=== PATIENT | male | born 1955 | race Caucasian/White ===

== ENCOUNTER 2017-02-19 18:03 | Emergency (ER) | payer OTHER ==
--- NOTE | ~2017-02-19 | CR63 ---
[facility] A Service of [facility] RADIOLOGY TEXT RESULTS PATIENT: NY FALLON LOCATION: CFTX : 51 UNIT #: [id number] AGE: [address]: Elvi Badillo SEX: M ORDER DR: [id number] [facility] [address] [place], [place] [address] [id number] MR#: [id number] Acc #: [id number] NAME: NY FALLON : 1955 SEX: M STUDY DATE/TIME: 02/19/2017 18:08 UNIT: [facility] ROOM: STUDY DESCRIPTION: CR Chest 2 View Attending Physician: Elvi Badillo P.A.-C. Ordering Physician: Elvi Badillo P.A.-C. Primary Care Physician: Tez Briceño M.D. MEDICAL IMAGING REPORT This report is preliminary unless electronic signature is present EXAM Chest x-ray portable HISTORY Cough and congestion, short of air and fever for 4 days. Asthma and bronchitis. COMMENT 2 views of the chest are reviewed. COMPARISON CT chest pending hoahaoism from 2011 FINDINGS There is airspace disease in the right middle lobe. The heart size is normal. There is no pleural effusion. There are mild thoracic degenerative changes. No pneumothorax. There is thickening of the peribronchial vascular soft tissues bilaterally appreciated best at the medial left base and are small reticular nodule densities diffusely. 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 IMPRESSION Interval development of an infiltrate in the right middle lobe. 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 Please correlate for clinical evidence of aspiration or pneumonia. Follow up to complete clearing is recommended to exclude a postobstructive process. There is some peribronchial vascular soft tissue thickening at the medial left base. The heart size is normal and there is no congestive failure, pneumothorax or pleural effusion. There is some nonspecific reticular nodular appearance to the interstitial markings in general. Attention to this is recommended when a follow up film is obtained. [facility] A Service of [facility] RADIOLOGY TEXT RESULTS PATIENT: NY FALLON LOCATION: [facility] : 51 UNIT #: [id number] AGE: [address]: Elvi Badillo SEX: M ORDER DR: Dictated by... Morena Torres M.D. THIS IS AN ELECTRONICALLY VERIFIED REPORT Morena Torres M.D. at 02/20/2017 3:09 PM SAC/to TD: 02/20/2017 13:39 JOB #: [id number] MEDICAL IMAGING REPORT Page 1 of 1 COPY
[2017-02-19 17:48] LABS: INFLUENZA A NEG (NEG); INFLUENZA B NEG (NEG)
[~2017-02-19 18:03] MED LIST: ADVAIR; LOPRESSOR PO; PLENDIL PO; SINGULAIR PO; ZOCOR80 MG PO; [UNRECOGNIZED DRUG - REMARK]
== END 2017-02-19 19:05 | disposition home or self-care (01) ==
LOC: CFTX 18:03
DX: J18.1 Lobar pneumonia, unspecified organism (principal); I10 Essential (primary) hypertension
CPT/HCPCS: 71020; 87651; 87804; 94640; 96372; 99283; J0696